=== PATIENT | female | born 1990 | race African-American/Black ===

== ENCOUNTER 2017-10-14 11:46 | Emergency (ER) | payer OTHER ==
[2017-10-14 13:03] LABS: #Eosinphils 0.4 thou/uL (0.0-0.7); #Lymphocytes 0.9 thou/uL (1.20-3.40); #Monocytes 0.5 thou/uL (0.11-0.59); #Neutrophils 8.2 thou/uL (1.40-6.50); %Basophils 0.1 % (0.0-1.0); %Eosinophils 3.6 % (0.0-10.0); %Lymphocytes 9.4 % (21.0-51.0); %Monocytes 4.8 % (0.0-10.0); %Neutrophils 82.1 % (42.0-75.0); Hemoglobin 13.4 g/dL (12.0-16.0); Mean Corpuscular HGB CONC 32.6 g/dL (32.0-36.0); Mean Corpuscular Hemoglobin 29.6 pg (27.0-31.0); Mean Corpuscular Volume 90.8 fl (81.0-99.0); Mean Platelet Volume 7.4 fL (7.4-10.4); Platelet Count 303 thou/uL (130-400); RBC Distribution Width 14.4 % (11.5-14.5); Red Blood Cell (RBC) Count 4.52 mill/uL (4.20-5.40)
[2017-10-14 13:26] LABS: ALT (SGPT) 9 U/L (8-55); AST (SGOT) 24 U/L (5-34); Albumin 3.9 g/dL (3.5-5.0); Alkaline Phosphatase 65 U/L (40-150); Anion Gap 13 mmol/L (10-20); BUN (Urea Nitrogen) 8 mg/dL (7.0-18.7); Bilirubin, Total 1.3 mg/dL (0.2-1.2); Calc. Creatinine Clearance 0 mL/min (70-130); Calcium 9.7 mg/dL (7.8-10.44); Carbon Dioxide 23 mmol/L (22-29); Chloride 104 mmol/L (98-107); Estimated GFR-MDRD Greater than 90; Glucose 92 mg/dL (70-105); Potassium 3.6 mmol/L (3.5-5.1); Protein, Total 7.9 g/dL (6.0-8.3); Sodium 136 mmol/L (136-145)
--- NOTE | 2017-10-14 14:06 | RAD ---
TWO VIEW CHEST: CLINICAL HISTORY: Dyspnea. COMPARISON: 01/31/2016 FINDINGS: There are patchy perihilar opacities bilaterally. No effusion or pneumothorax. The cardiac silhouet te is normal in size. IMPRESSION: Patchy bilateral perihilar opacities, which favor an atypical pneumonia. Recommend clinical correlat ion. POS: [id number]
== END 2017-10-14 14:32 | disposition left against medical advice (07) ==
LOC: ERS 11:46
DX: Z53.21 Procedure and treatment not carried out due to patient leaving prior to being seen by health care provider (principal)
CPT/HCPCS: 71046; 80053; 83605; 85025; 87040

== ENCOUNTER 2018-10-18 12:37 | Emergency (ER) | payer SELFPAY ==
--- NOTE | 2018-10-18 14:31 | RAD ---
2 VIEWS CHEST: Date: 10/18/18 COMPARISON: 10/14/17. HISTORY: Fever and cough. FINDINGS: Lungs appear clear. Heart and mediastinal contours unremarkable. No acute osseous abnormality. IMPRESSION: No acute findings. POS: [facility]
== END 2018-10-18 14:34 | disposition home or self-care (01) ==
LOC: SCSER 12:37
DX: J06.9 Acute upper respiratory infection, unspecified (principal); J45.909 Unspecified asthma, uncomplicated; F17.210 Nicotine dependence, cigarettes, uncomplicated; F41.9 Anxiety disorder, unspecified; F32.9 Major depressive disorder, single episode, unspecified
CPT/HCPCS: 71046; 87081; 87430; 87804

== ENCOUNTER 2019-06-07 10:02 | Emergency (ER) | payer SELFPAY ==
[2019-06-07] MEDS ORDERED: Dexamethasone 10 MG/ML VIAL ONE (10:51)
== END 2019-06-07 11:13 | disposition home or self-care (01) ==
LOC: SCSER 10:02
DX: J45.901 Unspecified asthma with (acute) exacerbation (principal); J06.9 Acute upper respiratory infection, unspecified; F31.9 Bipolar disorder, unspecified; F41.9 Anxiety disorder, unspecified; F17.210 Nicotine dependence, cigarettes, uncomplicated; Z79.51 Long term (current) use of inhaled steroids
CPT/HCPCS: 94640; 96372; J1100; J7620